=== PATIENT | male | born 1965 | race Caucasian/White ===

== ENCOUNTER 2019-03-13 09:40 | Emergency (ER) | payer BC ==
--- NOTE | 2019-03-13 09:50 | EDM.PDOC ---
ED HPI GENERAL MEDICAL PROBLEM - General Stated Complaint: stoke Time Seen by Provider: 03/13/19 09:40 Source of Information: Reports: Patient, Other (co worker) History Limitations: Reports: No Limitations - History of Present Illness INITIAL COMMENTS - FREE TEXT/NARRATIVE: 54 y.o.w.m with a H/O anxiety, came to work at 8 am and told his Coworker at 9.45 am, he, the pt does no feel well. Coworker asked him to sit down for a while. Co worker brought the pt to the ED at about 9.40 am. Pt's BP was 125/87 pulse was 70. Pt c/o tongue being numb. Pt has difficulty finding the right words and is not able to express himself. No focal weakness, he able to lift his arms up for > 5 sec without pronator drift. He is able to hold his legs up for 5 sec as well. Pt came to the ED by Wheel chair. No H/O CVA in the past. Pt takes Psych meds only, which names he does not remember. Temp 97.5 BP 156/87 Pulse ox 100% on RA RR 20 Onset Date: 03/13/19 Onset Time: 07:00 Duration: Hour(s): Location: Reports: Head Quality: Reports: Other (tongue numbness, word finding difficulties) Severity: Mild Improves with: Reports: None Worsens with: Reports: None Context: Reports: Other Associated Symptoms: Reports: Other (tongue numbness, word finding difficulty) - Related Data Allergies Allergy/AdvReac Type Severity Reaction Status Date / Time No Known Allergies Allergy Verified 03/13/19 10:20 Home Meds: Home Meds Venlafaxine HCl [Venlafaxine ER] 150 mg PO DAILY 03/13/19 [History] ED ROS GENERAL - Review of Systems Review Of Systems: See Below Constitutional: Reports: No Symptoms HEENT: Reports: Other (tongue is numb) Respiratory: Reports: No Symptoms Cardiovascular: Reports: No Symptoms Endocrine: Reports: No Symptoms GI/Abdominal: Reports: No Symptoms : Reports: No Symptoms Musculoskeletal: Reports: No Symptoms Skin: Reports: No Symptoms Neurological: Reports: Paresthesia (of tongue), Tingling (of tongue), Trouble Speaking (word fiding difficulties) Psychiatric: Reports: Other (H/O Anxiety) Hematologic/Lymphatic: Reports: No Symptoms Immunologic: Reports: No Symptoms ED EXAM, NEURO - Physical Exam Exam: See Below Exam Limited By: Other (word finding difficulty) General Appearance: Alert, WD/WN, Anxious, Moderate Distress Eye Exam: Bilateral Eye: Normal Inspection Ears: Normal External Exam, Normal Canal Nose: Normal Inspection, Normal Mucosa, No Blood Throat/Mouth: Normal Inspection, Normal Lips, Normal Teeth, Normal Gums, Normal Voice, No Airway Compromise Head Exam: Atraumatic, Normocephalic Neck: Normal Inspection, Supple, Non-Tender, Full Range of Motion Respiratory/Chest: No Respiratory Distress, Lungs Clear, Normal Breath Sounds, Chest Non-Tender Cardiovascular: Normal Peripheral Pulses, Regular Rate, Rhythm, No Edema, No Gallop, No Murmur GI/Abdominal: Normal Bowel Sounds, Soft, Non-Tender, No Organomegaly, No Abnormal Bruit, No Mass, Pelvis Stable (Male) Exam: Deferred Rectal (Males) Exam: Deferred Neurological: Alert, Normal Mood/Affect, Normal Dorsiflexion, CN II-XII Intact, Normal Plantar Flexion, Abnormal Gait (dizzy) Back Exam: Normal Inspection, Full Range of Motion Extremities: Normal Inspection, Normal Range of Motion, Non-Tender Psychiatric: Anxious Skin Exam: Warm, Dry, Intact, Normal Color, No Rash EKG INTERPRETATION EKG Date: 03/13/19 Time: 09:50 Rhythm: NSR Rate (Beats/Min): 70 [place]: Normal P-Wave: Present QRS: Normal ST-T: Normal QT: Normal Comparison: NA - No Prior EKG Course - Vital Signs Text/Narrative:: 54 y.o.w.m with a H/O anxiety, came to work at 8 am and told his Coworker at 9.45 am, he, the pt does no feel well. Coworker asked him to sit down for a while. Co worker brought the pt to the ED at about 9.40 am. Pt's BP was 125/87 pulse was 70. Pt c/o tongue being numb. Pt has difficulty finding the right words and is not able to express himself. No focal weakness, he able to lift his arms up for > 5 sec without pronator drift. He is able to hold his legs up for 5 sec as well. Pt came to the ED by Wheel chair. No H/O CVA in the past. Pt takes Psych meds only, which names he does not remember. Temp 97.5 BP 156/87 Pulse ox 100% on RA RR 20 PE: WNWD W M with word finding difficulties starinf at 7 am as per pt. Imaging: CT head without contrast: NAD as per RAD Labs: CBC, BMP, INR NL. Lipid panel was nl as well Impression: CVA vs TIA, H/O Anxiety Tx: ASA 9.50 am Consultation: Dr. Padgett, Neurologist, [facility] to the ED, nothing else at this time. Reexam: Pt's symptoms were slightly improving, pt says he feels better Plan: Transfer to [facility] ED Last Recorded V/S: Last Vital Signs Temp 36.1 C 03/13/19 10:30 Pulse 72 03/13/19 10:30 Resp 14 03/13/19 10:30 BP 122/78 03/13/19 10:30 Pulse Ox 100 03/13/19 10:30 - Orders/Labs/Meds Orders: Active Orders 24 hr Category Date Time Status Head wo Cont [CT] Stat Exams 03/13/19 09:45 Taken Labs: Laboratory Tests 03/13/19 03/13/19 03/13/19 Range/Units 09:40 09:40 09:40 WBC 6.1 (4.5-12.0) X10-3/uL RBC 4.83 (4.30-5.75) x10(6)uL Hgb 14.4 (13.5-17.8) g/dL Hct 43.0 (30.0-51.3) % MCV 88.9 (80-96) fL MCH 29.8 (27.7-33.6) pg MCHC 33.5 (32.2-35.4) g/dL RDW 13.4 (11.5-15.5) % Plt Count 322 (125-369) X10(3)uL MPV 7.3 L (7.4-10.4) fL Neut % (Auto) 69.4 (46-82) % Lymph % (Auto) 21.0 (13-37) % Nolan % (Auto) 5.8 (4-12) % Eos % (Auto) 3 (1.0-5.0) % Baso % (Auto) 1 (0-2) % Neut # (Auto) 4.1 (1.6-8.3) # Lymph # (Auto) 1.3 (0.6-5.0) # Nolan # (Auto) 0.4 (0.0-1.3) # Eos # (Auto) 0.2 (0.0-0.8) # Baso # (Auto) 0.1 (0.0-0.2) # PT 9.3 (8.7-11.1) INR 0.96 (0.89-1.13) Sodium 141 (135-145) mmol/L Potassium 4.1 (3.5-5.3) mmol/L Chloride 106 (100-110) mmol/L Carbon Dioxide 25 (21-32) mmol/L BUN 17 (7-18) mg/dL Creatinine 0.9 (0.70-1.30) mg/dL Est Cr Clr Drug Dosing TNP Estimated GFR (MDRD) > 60 (>60) BUN/Creatinine Ratio 18.9 (9-20) Glucose 95 (80-116) mg/dL Calcium 9.1 (8.6-10.2) mg/dL Triglycerides (15-150) mg/dL Cholesterol (50-200) mg/dL LDL Cholesterol Direct (60-130) mg/dL HDL Cholesterol (40-75) mg/dL Cholesterol/HDL Ratio (0-5) // Range/Units 09:40 WBC (4.5-12.0) X10-3/uL RBC (4.30-5.75) x10(6)uL Hgb (13.5-17.8) g/dL Hct (30.0-51.3) % MCV (80-96) fL MCH (27.7-33.6) pg MCHC (32.2-35.4) g/dL RDW (11.5-15.5) % Plt Count (125-369) X10(3)uL MPV (7.4-10.4) fL Neut % (Auto) (46-82) % Lymph % (Auto) (13-37) % Nolan % (Auto) (4-12) % Eos % (Auto) (1.0-5.0) % Baso % (Auto) (0-2) % Neut # (Auto) (1.6-8.3) # Lymph # (Auto) (0.6-5.0) # Nolan # (Auto) (0.0-1.3) # Eos # (Auto) (0.0-0.8) # Baso # (Auto) (0.0-0.2) # PT (8.7-11.1) INR (0.89-1.13) Sodium (135-145) mmol/L Potassium (3.5-5.3) mmol/L Chloride (100-110) mmol/L Carbon Dioxide (21-32) mmol/L BUN (7-18) mg/dL Creatinine (0.70-1.30) mg/dL Est Cr Clr Drug Dosing Estimated GFR (MDRD) (>60) BUN/Creatinine Ratio (9-20) Glucose (80-116) mg/dL Calcium (8.6-10.2) mg/dL Triglycerides 58 (15-150) mg/dL Cholesterol 123 (50-200) mg/dL LDL Cholesterol Direct 45 L (60-130) mg/dL HDL Cholesterol 55 (40-75) mg/dL Cholesterol/HDL Ratio 2.2 (0-5) Meds: Medications Discontinued Medications Generic Name Dose Route Start Last Admin Trade Name Davidq PRN Reason Stop Dose Admin Aspirin 324 mg 03/13/19 10:30 03/13/19 10:11 Aspirin PO 03/13/19 10:31 324 mg ONETIME ONE Administration Departure - Departure Time of Disposition: 11:00 Disposition: DC/Tfer to Acute Hospital 02 Condition: Fair Clinical Impression: Word finding difficulty - Discharge Information Referrals: PCP,None [Primary Care Provider] - Forms: ED Department Discharge - My Orders Last 24 Hours: My Active Orders 03/13/19 09:45 Head wo Cont [CT] Stat - Assessment/Plan Last 24 Hours: My Active Orders 03/13/19 09:45 Head wo Cont [CT] Stat
[2019-03-13] MEDS ORDERED: Aspirin 81 MG Tab.Chew PO ONE (10:30)
== END 2019-03-13 10:40 ==
LOC: FB.ED 09:40
DX: R47.9 Unspecified speech disturbances (principal)
CPT/HCPCS: 36415; 70450; 80048; 80061; 85025; 85610; 93005; 99285; A9270